=== PATIENT | male | born 1940 | race Caucasian/White ===

== ENCOUNTER 2016-06-14 01:14 | Day surgery (SDC) | payer MEDICARE ==
[~2016-06-14] VITALS: Ht 177.8 cm; Wt 88.6 kg
[2016-06-14] VITALS (15 sets, daily range): BP systolic 123–158; BP diastolic 74–89; PULSE 57–76; RESP 12–21; O2SAT 96–99
[~2016-06-14 01:14] MED LIST: ASPI-973 PO; CALC-786 PO; DOCU250C2 PO; FLUO40CR9 TP; ISOS60TA2 PO; LEVO100T6 PO; LIP40 PO; METO-272 PO; MULT-666 PO; NITR0.4T6 SL; [UNRECOGNIZED DRUG - CODE] IV
[2016-06-14 10:45] LABS: BASOPHILS % (AUTO) 0.4 % (0-3); EOSINOPHILS % (AUTO) 5.2 % (0-5); MONOCYTES % (AUTO) 14.7 % (4-12); Mean Corpuscular Hemoglobin 33.7 pg (27.0-35.0); Mean Corpuscular Volume 99.2 fL (81-100); Platelet Count 122 bil/L (150-400)
[2016-06-14] MEDS ORDERED: ZOV800 PO (11:06)
[2016-06-14] MEDS ORDERED: [UNRECOGNIZED DRUG - CODE] SUBDERMAL (11:10)
--- NOTE | 2016-06-14 14:04 | NUR ---
[facility] ADMIT HEART CATH 76 YR OLD MALE ADMITTED TO [facility] FOR HEART CATH TODAY. IVS STARTED, LABS SENT, AND CONSENT IS SIGNED. ASSESSMENT COMPLETED AND QUESTIONS ANSWERED.
[2016-06-14] MEDS ORDERED: Heparin 1,000 Unit/mL 10 mL Inj ONE (14:08)
[2016-06-14] MEDS ORDERED: 0.9% Sodium Chloride 1,000 ML ONE (14:08)
[2016-06-14] MEDS ORDERED: Nitroglycerin 50,000 mcg/250 mL D5W Premix IV ONE (14:08)
[2016-06-14] MEDS ORDERED: Heparin 1,000 Units/500 mL NS Premix IV ONE (14:08)
[2016-06-14] MEDS ORDERED: fentaNYL-PF 50 mCg/mL 2 mL Inj ONE (14:39)
--- NOTE | 2016-06-14 20:15 | NUR ---
DISCHARGE PT COMPLETED BEDREST THEN AMBULATED IN [place]. RIGHT GROIN REMAINED STABLE, NO BLEEDING OR HEMATOMA NOTED. DISCHARGE INSTRUCTIONS WERE REVIEWED AND PT VERBALIZED UNDERSTANDING. F/U WITH DR SALGADO IN 1-2 WEEKS. ISOSORBIDE DISCONTINUED PER MD ORDERS.
--- NOTE | 2016-06-26 16:16 | CS94 ---
[address] [address] DIAGNOSTIC CARDIAC CATHETERIZATION PATIENT: TANGELA BEE : 1940 MR#: [id number] ADMIT: 06/14/2016 JOB ID: [id number] SERVICE DATE: 06/14/2016 PROCEDURE: 1. Selective right and left coronary angiography. 2. Saphenous vein angiography x2. 3. ORTA angiography. 4. Left heart catheterization. 5. LV angiography. INDICATION: Recurrent chest discomfort in a patient with known history of coronary artery disease. PROCEDURAL DETAILS: These are well enumerated in the procedure log to which the reader is referred as are the coders. Briefly, standard Svetlana catheters. Right femoral approach. ANGIOGRAPHIC FINDINGS: 1. Left main has a tubular stenosis of 40%-50%. 2. LAD is a moderate caliber vessel. Past the first major diagonal, it has a tubular stenosis of 70%-80%. Competitive flow is noted in the mid to distal LAD. The first major diagonal has a 40% lesion. 3. Circumflex is nondominant. In its ostium, it has a 50% disease. There is a graft attached to the OM branch that can be seen filling and appears to be patent. 4. Right coronary artery is a moderate caliber vessel. Distally before the crux, it has a 80%-90% lesion. The rest of the vessel has moderate diffuse disease. The distal RCA also has a 70% eccentric lesion. 5. Saphenous vein graft angiography: Saphenous vein graft to circumflex is patent. It appears to be hooked onto the first major obtuse marginal branch. It fills the circumflex post retrogradely and antegradely. It is a good caliber graft. 6. Saphenous vein graft to the right coronary artery is diseased. In its distal aspect, it has about a 60%-70% lesion. Just prior to the insertion, there is another 80% lesion. This lesion appears to be somewhat hazy and could be his culprit vessel. 7. ORTA to LAD is patent. 8. LV angiography revealed preserved contractility. EF is estimated to be around 55%. There was no gradient upon pullback. In summary, this gentleman appears to be adequately revascularized. His RCA graft is an old graft and it has a chance for distal embolization. I would recommend medical therapy, and if this graft does go down, consideration can be given to intervening on the pokagon RCA. For now I would persist with medical therapy.
== END 2016-06-14 23:59 | disposition home or self-care (01) ==
LOC: SOUO 01:14
PROVIDERS: ATTEND Internal Medicine Cardiovascular Disease
DX: I25.118 Atherosclerotic heart disease of native coronary artery with other forms of angina pectoris (principal); I10 Essential (primary) hypertension; G47.33 Obstructive sleep apnea (adult) (pediatric); G25.81 Restless legs syndrome; Z95.1 Presence of aortocoronary bypass graft; Z95.5 Presence of coronary angioplasty implant and graft; I25.2 Old myocardial infarction; Z79.82 Long term (current) use of aspirin
CPT/HCPCS: 36415; 80048; 85025; 93005; 93459; 99152; 99153; C1769; J1644; J2250; J3010; J7030; Q9967